=== PATIENT | male | born 1985 | race Caucasian/White ===

== ENCOUNTER 2016-05-16 09:38 | Emergency (ER) | payer OTHER ==
[~2016-05-16] VITALS: Ht 177.8 cm; Wt 121.2 kg
[2016-05-16 09:58] VITALS: Ht 177.8 cm; Wt 121.2 kg
--- NOTE | 2016-05-16 11:31 | ERD ---
ER Documentation Chief Complaint Date/Time DATE: 05/16/16 TIME: 11:26 Chief Complaint RT HAND INJURY ON FRIDAY, PREVIOUS INJURY NOT TREATED HPI This is a 30-year-old male with history of hypertension presenting to the emergency room complaining of right hand pain since Friday. Patient states that he has had no traumatic injury to it. Patient states that he has also been drinking alcohol every single day for the past few months, patient states that he has been a chronic alcoholic for the past 12 years and relapsed recently when he came out of the [facility]. Patient denies any abdominal pain, nausea, vomiting. Patient states that he is going to [facility] and he is trying to overcome alcoholism ROS All systems reviewed and are negative except as per history of present illness. Medications Home Meds Reported Medications [None] No Conflict Check 04/30/12 Allergies Allergies: Coded Allergies: morphine (Verified Allergy, 07/28/12) PMhx/Soc History of Surgery: No Anesthesia Reaction: No Hx Neurological Disorder: No Hx Respiratory Disorders: No Hx Cardiac Disorders: No Hx Psychiatric Problems: Yes (bipolar; depression) Hx Miscellaneous Medical Probl: Yes (DM) Hx Alcohol Use: Yes (HEAVY DRINKER) Hx Substance Use: No (UNKNOWN) Hx Tobacco Use: No (UNKNOWN) Physical Exam Vitals Vital Signs Date Time Temp Pulse Resp B/P Pulse Ox O2 Delivery O2 Flow Rate FiO2 05/16/16 09:58 98.6 115 16 137/83 96 Physical Exam GENERAL: well-developed/well-nourished, in no apparent distress, non-toxic appearing HENT: NC/AT, bilateral tympanic membrane is normal with good cone of light, nares patent, oropharynx clear without exudates EYES: Conjunctiva normal, PERRLA, EOMI, no nystagmus noted NECK: Supple, no lymphadenopathy PULM: CTA bilaterally, no rales, rhonchi, or wheezing heard CV: Normal S1S2, RRR, good capillary refill GI: Soft, non-distended, normal bowel sounds, non-tender BACK: No midline tenderness, no masses, No CVAT EXT: Mild tenderness to palpation over the right dorsal hand, patient had full range of motion of the right hand, patient had full range of motion of all digits, no neuro deficits NEURO: Alert and orientated to person, place, and time. CN II-IIX intact. Gait and coordination were normal. Hand mid level clinician strength were equal and within normal limits SKIN: Intact, normal turgor PSYCH: Normal mood and mentation, patient denied SI Procedures/MDM This is a 30-year-old male with a history of hypertension and chronic alcoholism presenting to the emergency department complaining of right hand atraumatic injury since Friday. Patient also admits to having alcohol today. On examination patient had a normal neurological exam, he is speaking clearly , patient was ambulating well with normal gait. Patient had no evidence of ataxia. Patient is clinically sober. I have given patient a lengthy discussion on discontinuing alcohol and getting help, patient states that he is trying to get help at suitable living from [place]. I have discussed outpatient resources however patient states that he already is speaking to a psychiatrist and is getting help. He states that he does want to quit and he is working on it. On examination patient had full range of motion of his right hand and digits. An x-ray of the right hand was done to rule out any fracture dislocation, radiologist stated I have given patient a list of primary care doctors, I discussed patient to follow-up with the primary care doctor for further evaluation management. SUSANA CHAMBERLAIN PA-C May 16, 2016 11:31
--- NOTE | 2016-05-16 12:25 | RADRPT ---
PROCEDURE: XR Hand. CLINICAL INDICATION: Right hand pain due to trauma. TECHNIQUE: Three views. Frontal, lateral, and oblique images of the right hand were obtained. COMPARISON: No prior studies are available for comparison. FINDINGS: There is deformity of the third, fourth and fifth metacarpals distally due to old healed fractures. There is no acute fracture and there is no dislocation. There is mild soft tissue swelling overlying the fifth metacarpal. Articular surfaces are intact. There is no lytic or blastic lesion. There is no radiopaque foreign body. IMPRESSION: 1. Old healed fractures of the third, fourth, and fifth metacarpals distally. 2. Soft tissue swelling overlying the fifth metacarpal. 3. No acute abnormality. RPTAT: QQ .Neil Rice MD, Date Time Electronically viewed and signed by .Neil Rice MD, on 05/16/2016 12:25 .R/
[2016-05-16] MEDS ORDERED: ACET325T33 PO (12:48)
== END 2016-05-16 13:14 | disposition home or self-care (01) ==
LOC: FTE 09:38
DX: S69.91XA Unspecified injury of right wrist, hand and finger(s), initial encounter (principal); I10 Essential (primary) hypertension; E11.9 Type 2 diabetes mellitus without complications; X58.XXXA Exposure to other specified factors, initial encounter; Y92.9 Unspecified place or not applicable
CPT/HCPCS: 73130; Z7502

== ENCOUNTER 2016-07-29 13:26 | Emergency (ER) | payer OTHER ==
[~2016-07-29] VITALS: Wt 113.6 kg
[~2016-07-29 13:26] MED LIST: ACET325T33 PO
--- NOTE | 2016-07-29 13:32 | ERA ---
ER Documentation Chief Complaint Date/Time DATE: 07/29/16 TIME: 13:32 Chief Complaint Altered level of consciousness HPI The patient is 31-year-old male, presenting to the ER because he was found altered level of consciousness from a motel. He is able to answer his name, however is very somnolent but arousable. The history is obtained from the rn clinical and medical record Past medical history: Bipolar disorder, depression, diabetes mellitus Past surgical history, social history, review of system: Unable to obtain due to his condition ROS All systems reviewed and are negative except as per history of present illness. Medications Home Meds Discontinued Reported Medications [None] No Conflict Check 04/30/12 Discontinued Scripts Acetaminophen* (Tylenol*) 325 Mg Tablet, 2 TAB PO Q4 Y for PAIN AND OR ELEVATED TEMP, #30 TAB Prov:SUSANA CHAMBERLAIN PA-C 05/16/16 Allergies Allergies: Coded Allergies: morphine (Verified Allergy, Unknown, 07/29/16) PMhx/Soc History of Surgery: No Anesthesia Reaction: No Hx Neurological Disorder: No Hx Respiratory Disorders: No Hx Cardiac Disorders: No Hx Psychiatric Problems: Yes (bipolar; depression) Hx Miscellaneous Medical Probl: Yes (DM) Hx Alcohol Use: Yes (HEAVY DRINKER) Hx Substance Use: No (UNKNOWN) Hx Tobacco Use: No (UNKNOWN) Physical Exam Vitals Vital Signs Date Time Temp Pulse Resp B/P Pulse Ox O2 Delivery O2 Flow Rate FiO2 07/29/16 15:23 98.2 64 18 115/69 97 Nasal Cannula 2.0 07/29/16 13:46 Nasal Cannula 2 07/29/16 13:31 98.0 81 16 126/82 94 Physical Exam Const: No acute distress. Head: Atraumatic. Eyes: Normal Conjunctiva. Pupils are dilated ENT: Normal External Ears, Nose and Mouth. Neck: Full range of motion. No meningismus. Resp: Clear to auscultation bilaterally. Cardio: Regular rate and rhythm, no murmurs. Abd: Soft, non distended, normal bowel sounds, non tender. Skin: No petechiae or rashes. Back: No midline or flank tenderness. Ext: No cyanosis, or edema. Neur: Limited due to his condition, he is moving all extremities Psych: Normal Mood and Affect. Result Diagram: 07/29/16 1350 07/29/16 1350 Results 24 hrs Laboratory Tests Test 07/29/16 13:50 07/29/16 13:53 07/29/16 14:34 White Blood Count 7.610^3/ul Red Blood Count 5.4010^6/ul Hemoglobin 15.2g/dl Hematocrit 45.9% Mean Corpuscular Volume 85.0fl Mean Corpuscular Hemoglobin 28.1pg Mean Corpuscular Hemoglobin Concent 33.1g/dl Red Cell Distribution Width 14.9% Platelet Count 63885^3/UL Mean Platelet Volume 10.3fl Neutrophils % 49.2% Lymphocytes % 40.8% Monocytes % 8.2% Eosinophils % 0.4% Basophils % 0.5% Nucleated Red Blood Cells % 0.0/100WBC Neutrophils # 3.810^3/ul Lymphocytes # 3.110^3/ul Monocytes # 0.610^3/ul Eosinophils # 0.010^3/ul Basophils # 0.010^3/ul Nucleated Red Blood Cells # 0.010^3/ul Prothrombin Time 12.4Sec Prothrombin Time Ratio 1.0 INR International Normalized Ratio 0.92 Activated Partial Thromboplast Time 27.7Sec Urine Color LT. YELLOW Urine Clarity CLEAR Urine pH 6.0 Urine Specific [place] <=1.005 Urine Ketones NEGATIVE Urine Nitrite NEGATIVE Urine Bilirubin NEGATIVE Urine Urobilinogen 0.2 E.U./dL Urine Leukocyte Esterase NEGATIVE Urine Microscopic RBC NONE SEEN/HPF Urine Microscopic WBC NONE SEEN/HPF Urine Renal Epithelial Cells FEW Urine Hemoglobin TRACE Urine Glucose NEGATIVE% Urine Total Protein NEGATIVE Sodium Level 150mmol/L Potassium Level 4.0mmol/L Chloride Level 110mmol/L Carbon Dioxide Level 23mmol/L Anion Gap 21 Blood Urea Nitrogen 11mg/dl Creatinine 0.95mg/dl Glucose Level 103mg/dl Calcium Level 9.0mg/dl Total Bilirubin 0.1mg/dl Direct Bilirubin 0.00mg/dl Indirect Bilirubin 0.1mg/dl Aspartate Amino Transf (AST/SGOT) 55IU/L Alanine Aminotransferase (ALT/SGPT) 46IU/L Alkaline Phosphatase 135IU/L Troponin I < 0.012ng/ml Total Protein 8.4g/dl Albumin 4.5g/dl Globulin 3.90g/dl Albumin/Globulin Ratio 1.15 Salicylates Level < 1.0mg/dl Urine Opiates Screen NEGATIVE Acetaminophen Level < 10.0ug/ml Urine Barbiturates NEGATIVE Urine Amphetamines Screen NEGATIVE Urine Benzodiazepines Screen NEGATIVE Urine Cocaine Screen NEGATIVE Urine Cannabinoids NEGATIVE Ethyl Alcohol Level 465.0mg/dl Bedside Glucose 87mg/dL 122mg/dL Current Medications Medications (Trade) Dose Ordered Sig/Gilbert Route PRN Reason Start Time Stop Time Status Last Admin Dose Admin Dextrose (D50w Syringe) 25 ml NOW STAT IV 07/29/16 13:56 07/29/16 13:57 DC 07/29/16 14:11 Procedures/MDM [place] [id number] Radiology Main Line: [phone] DIAGNOSTIC IMAGING REPORT Patient: YUSRA ROMO : 1985 Age: 31 Sex: M MR #: [id number] DOS: 07/29/16 1339 Ordering MD: JUANY QUEEN MD Location: E/R Room/Bed: PROCEDURE: Chest Radiograph. CLINICAL INDICATION: Altered mental status TECHNIQUE: Single frontal chest radiograph. COMPARISON: 07/28/2012 FINDINGS: The the patient is rotated. Study is limited due to underpenetration. Heart size is poorly evaluated. There is no definitive confluent or lobar infiltrate. No pleural effusion is identified. Lung volumes are decreased in there is basilar atelectasis. IMPRESSION: 1. Low lung volumes with basilar atelectasis. RPTAT: KK .Won Morris MD, MD Date Time Electronically viewed and signed by .Won Morris MD, MD on 2016 13:59 .B/ CC: JUANY QUEEN MD [place] [id number] Radiology Main Line: [phone] DIAGNOSTIC IMAGING REPORT Patient: YUSRA ROMO : 1985 Age: 31 Sex: M MR #: [id number] DOS: 07/29/16 1339 Ordering MD: JUANY QUEEN MD Location: E/R Room/Bed: PROCEDURE: CT Brain without. CLINICAL INDICATION: Altered mental status. TECHNIQUE: A CT of the brain was performed on multidetector high-resolution CT scanner utilizing axial sections from the skull base through the vertex without contrast. The scan was reviewed in soft tissue brain and high frequency resolution bone algorithm windows. Images were reviewed on a high- resolution PACS workstation. One or more the following does reduction techniques were utilized: Automated exposure control, adjustment of the mA/ or kV according to patient's size, or use of iterative reconstruction technique. The exam CTDI = 43.50 mGy and the DLP = 720.23 mGy-cm. COMPARISON: None available. FINDINGS: The ventricles and sulci are age-appropriate. There is no intracranial hemorrhage, mass effect or midline shift. No abnormal intra-axial or extra- axial fluid collections are seen. The carrillo/white matter differentiation is preserved. No acute skull abnormality is noted. The visualized paranasal sinuses demonstrate mild scattered mucosal thickening mainly in ethmoid air cells. The mastoid air cells are essentially clear. IMPRESSION: 1. No acute intracranial hemorrhage, transcortical infarction or mass effect. RPTAT: HH .Annemarie Philip MD, Date Time Electronically viewed and signed by .Annemarie Philip MD, MD on 07/29/2016 16: 02 .N/ CC: JUANY QUEEN MD MEDICAL MAKING DECISION: The patient is a 31-year-old male, presenting to the ER because of acute encephalopathy due to acute alcohol intoxication. He is awake and he is resting in the ER. He will be discharged when he chriss, able to ambulate, able to tolerate p.o. The differential diagnoses considered include but are not limited to medication non-compliance, alcohol intoxication or withdrawal, drug intoxication or withdrawal, endocrine disorder, trauma, CVA, tumor, metabolic encephalopathy, septic encephalopathy. Departure Diagnosis: Primary Impression: Alcohol intoxication Condition: Good Comments I discussed the findings with the patient. I advised the patient to follow-up with the primary physician in about 1-2 days, sooner if needed and return if any concern. He will be discharged when he is chriss The patient's blood pressure was elevated (>120/80) but appears stable without evidence of hypertension emergency or urgency. The patient was counseled about the risks of hypertension and urged to pursue outpatient monitoring and therapy within a week with their primary care physician. JUANY QUEEN MD July 29, 2016 13:32
[2016-07-29 13:56] LABS: ADD SCAN DIFF NO
[2016-07-29] MEDS ORDERED: DEXTROSE 50% 50 ML SYRINGE IV STA (13:56)
--- NOTE | 2016-07-29 13:59 | RADRPT ---
PROCEDURE: Chest Radiograph. CLINICAL INDICATION: Altered mental status TECHNIQUE: Single frontal chest radiograph. COMPARISON: 07/28/2012 FINDINGS: The the patient is rotated. Study is limited due to underpenetration. Heart size is poorly evaluat ed. There is no definitive confluent or lobar infiltrate. No pleural effusion is identified. Lung volumes are decreased in there is basilar atelectasis. IMPRESSION: 1. Low lung volumes with basilar atelectasis. RPTAT: KK .Won Morris MD, MD Date Time Electronically viewed and signed by .Won Morris MD, MD on 07/29/2016 13:59 .B/
[2016-07-29 14:07] LABS: BASOPHILS % 0.5 % (0.0-2.0); EOSINOPHILS % 0.4 % (0.0-7.0); HEMATOCRIT 45.9 % (42.0-52.0); HEMOGLOBIN 15.2 g/dl (14.0-18.0); LYMPHOCYTES # 3.1 10^3/ul (0.8-2.9); LYMPHOCYTES % 40.8 % (15.0-51.0); MEAN CORPUSCULAR HEMOGLOBIN 28.1 pg (29.0-33.0); MEAN CORPUSCULAR HGB CONC 33.1 g/dl (32.0-37.0); MEAN PLATELET VOLUME 10.3 fl (7.4-10.4); MONOCYTE # 0.6 10^3/ul (0.3-0.9); MONOCYTES % 8.2 % (0.0-11.0); NEUTROPHIL # 3.8 10^3/ul (1.6-7.5); NEUTROPHILS % 49.2 % (39.0-77.0); PLATELET COUNT 330 10^3/UL (140-415); RED CELL DISTRIBUTION WIDTH 14.9 % (11.5-14.5); WHITE BLOOD COUNT 7.6 10^3/ul (4.8-10.8)
[2016-07-29 14:09] LABS: ADD UMIC YES; URINE BILIRUBIN (Dip) NEGATIVE (NEGATIVE); URINE BLOOD (Dip) TRACE (NEGATIVE); URINE COLOR LT. YELLOW (YELLOW); URINE GLUCOSE (Dip) NEGATIVE (NEGATIVE); URINE KETONES (Dip) NEGATIVE (NEGATIVE); URINE LEUKOCYTE ESTERASE (Dip) NEGATIVE (NEGATIVE); URINE NITRITE (Dip) NEGATIVE (NEGATIVE); URINE TOTAL PROTEIN (Dip) NEGATIVE (NEGATIVE); URINE UROBILINOGEN (Dip) 0.2 E.U./dL (0.1-1.0)
[2016-07-29 14:13] LABS: ALBUMIN 4.5 g/dl (3.3-4.9)
[2016-07-29 14:14] LABS: CHLORIDE 110 mmol/L (97-110); INR 0.92; PARTIAL THROMBOPLASTIN TIME 27.7 Sec (25.0-35.0); PROTIME 12.4 Sec (12.2-14.2); SODIUM 150 mmol/L (135-144)
[2016-07-29 14:16] LABS: ALBUMIN/GLOBULIN RATIO 1.15; ALKALINE PHOSPHATASE 135 IU/L (42-121); ANION GAP 21 (8-16); ASPARTATE AMINO TRANSFERASE 55 IU/L (15-46); BILIRUBIN,INDIRECT 0.1 mg/dl (0-1.1); BILIRUBIN,TOTAL 0.1 mg/dl (0.2-1.3); CARBON DIOXIDE 23 mmol/L (21-31); CREATININE 0.95 mg/dl (0.61-1.24); TOTAL PROTEIN 8.4 g/dl (6.1-8.1)
[2016-07-29 14:17] LABS: ACETAMINOPHEN < 10.0 ug/ml (10.0-30.0); ALANINE AMINOTRANSFERASE 46 IU/L (13-69); BLOOD UREA NITROGEN 11 mg/dl (7-20); GLUCOSE 103 mg/dl (70-220); SALICYLATE < 1.0 mg/dl (5.0-30.0)
[2016-07-29 14:21] LABS: RENAL EPITHELIAL CELLS,URINE FEW; URINE RBCS NONE SEEN /HPF (0)
[2016-07-29 14:28] LABS: TROPONIN-I < 0.012 ng/ml (0.00-0.12)
[2016-07-29 14:39] LABS: BARBITURATES NEGATIVE (NEGATIVE); BENZODIAZEPINES NEGATIVE (NEGATIVE); CANNABINOIDS NEGATIVE (NEGATIVE); COCAINE NEGATIVE (NEGATIVE); OPIATES NEGATIVE (NEGATIVE)
--- NOTE | 2016-07-29 16:03 | RADRPT ---
PROCEDURE: CT Brain without. CLINICAL INDICATION: Altered mental status. TECHNIQUE: A CT of the brain was performed on multidetector high-resolution CT scanner utilizing a xial sections from the skull base through the vertex without contrast. The scan was reviewed in sof t tissue brain and high frequency resolution bone algorithm windows. Images were reviewed on a high -resolution PACS workstation. One or more the following does reduction techniques were utilized: Aut omated exposure control, adjustment of the mA/ or kV according to patient's size, or use of iterativ e reconstruction technique. The exam CTDI = 43.50 mGy and the DLP = 720.23 mGy-cm. COMPARISON: None available. FINDINGS: The ventricles and sulci are age-appropriate. There is no intracranial hemorrhage, mass effect or mi dline shift. No abnormal intra-axial or extra-axial fluid collections are seen. The carrillo/white micki er differentiation is preserved. No acute skull abnormality is noted. The visualized paranasal sinus es demonstrate mild scattered mucosal thickening mainly in ethmoid air cells. The mastoid air cells are essentially clear. IMPRESSION: 1. No acute intracranial hemorrhage, transcortical infarction or mass effect. RPTAT: HH .Annemarie Philip MD, Date Time Electronically viewed and signed by .Annemarie Philip MD, MD on 07/29/2016 16:02 .N/
[2016-07-29 18:59] VITALS: BP 130/83; PULSE 98; RESP 20; TEMP 98.1
== END 2016-07-29 19:02 | disposition home or self-care (01) ==
LOC: E/R 13:26
DX: F10.120 Alcohol abuse with intoxication, uncomplicated (principal); E11.9 Type 2 diabetes mellitus without complications
CPT/HCPCS: 70450; 71010; 80053; 80306; 80307; 81001; 82962; 84484; 85025; 85610; 85730; 93005; 96374; Z7502; Z7610; 81003

== ENCOUNTER 2016-09-09 10:11 | Inpatient (IN) | payer OTHER ==
[~2016-09-09] VITALS: Ht 180.3 cm; Wt 114.6 kg
[2016-09-09] MEDS ORDERED: THIAMINE 100 MG TAB PO STA (10:26)
[2016-09-09] MEDS ORDERED: SOD CHLORIDE 0.9% 1,000 ML IV STA (10:26)
[2016-09-09] MEDS ORDERED: LORAZEPAM 2 MG INJ IV ONE ×3 (10:30→20:30)
[2016-09-09] MEDS ORDERED: FOLIC ACID 1 MG TAB PO ONE (10:30)
[2016-09-09 11:09] LABS: ADD SCAN DIFF NO
[2016-09-09 11:12] LABS: BASOPHIL # 0.1 10^3/ul (0.0-0.1); BASOPHILS % 1.1 % (0.0-2.0); EOSINOPHILS # 0.1 10^3/ul (0.0-0.5); EOSINOPHILS % 1.3 % (0.0-7.0); HEMATOCRIT 41.4 % (42.0-52.0); HEMOGLOBIN 13.8 g/dl (14.0-18.0); LYMPHOCYTES # 1.5 10^3/ul (0.8-2.9); LYMPHOCYTES % 26.4 % (15.0-51.0); MEAN CORPUSCULAR HEMOGLOBIN 29.1 pg (29.0-33.0); MEAN CORPUSCULAR HGB CONC 33.3 g/dl (32.0-37.0); MEAN CORPUSCULAR VOLUME 87.2 fl (82.0-101.0); MEAN PLATELET VOLUME 10.1 fl (7.4-10.4); MONOCYTES % 17.4 % (0.0-11.0); NEUTROPHILS % 53.6 % (39.0-77.0); PLATELET COUNT 249 10^3/UL (140-415); RED BLOOD COUNT 4.75 10^6/ul (4.70-6.10); RED CELL DISTRIBUTION WIDTH 17.5 % (11.5-14.5); WHITE BLOOD COUNT 5.6 10^3/ul (4.8-10.8)
[2016-09-09 11:28] LABS: BENZODIAZEPINES Positive (NEGATIVE)
[2016-09-09 11:36] LABS: BARBITURATES Negative (NEGATIVE); CANNABINOIDS Negative (NEGATIVE); COCAINE Negative (NEGATIVE); OPIATES Negative (NEGATIVE)
[2016-09-09 11:43] LABS: ALBUMIN 4.8 g/dl (3.3-4.9); ALBUMIN/GLOBULIN RATIO 1.45; BILIRUBIN,INDIRECT 0.2 mg/dl (0-1.1); BILIRUBIN,TOTAL 0.2 mg/dl (0.2-1.3); CALCIUM 9.4 mg/dl (8.4-10.2); CREATININE 0.78 mg/dl (0.61-1.24); POTASSIUM 3.7 mmol/L (3.5-5.1); TOTAL PROTEIN 8.1 g/dl (6.1-8.1)
--- NOTE | 2016-09-09 13:09 | RADRPT ---
PROCEDURE: Right hand series CLINICAL INDICATION: Right hand pain after trauma TECHNIQUE: Three views of the right hand were obtained. COMPARISON: No prior studies are available for comparison. FINDINGS: There is normal mineralization and alignment of the bones of the right hand. There are healed third and fifth metacarpal fractures and a possible healed fourth distal metacarpal fracture. There is n o evidence of acute fracture or dislocation. Joint spaces are well maintained. There is no evidenc e of osteophyte formation or erosions. There is moderate dorsal soft tissue swelling. IMPRESSION: 1. Healed 3rd and fifth metacarpal fractures. 2. No evidence of acute fracture or dislocation. RPTAT: KK .Won Morris MD, MD Date Time Electronically viewed and signed by .Won Morris MD, on 09/09/2016 13:08 .B/
--- NOTE | 2016-09-09 13:51 | ERA ---
ER Documentation Chief Complaint Date/Time DATE: 09/09/16 TIME: 13:48 Chief Complaint feeling like he is withdrawing from alcohol,denies si/hi,c/o right hand wade HPI 31-year-old male who presents the emergency room stating that he feels like he might be withdrawing from alcohol and reporting suicidal thoughts. He describes a history of bipolar disorder and deyvi. He is describing increasing suicidal thoughts, feeling anxious and overwhelmed. He is states that he would like to kill himself by drinking. The patient states that he has been drinking. He states that his last drink was 11 PM last night. He states he feels a mild tremor but denies any falls or injury. No headache or vision changes. He denies any abdominal pain or back pain. The patient additionally describes mild right hand pain that is dull aching and throbbing after punching a wall 2 days ago. He is right-hand dominant. ROS All systems reviewed and are negative except as per history of present illness. Medications Home Meds No Active Prescriptions or Reported Meds Allergies Allergies: Coded Allergies: morphine (Verified Allergy, Unknown, 07/29/16) PMhx/Soc History of Surgery: No Anesthesia Reaction: No Hx Neurological Disorder: No Hx Respiratory Disorders: No Hx Cardiac Disorders: No Hx Psychiatric Problems: Yes (bipolar; depression) Hx Miscellaneous Medical Probl: Yes (DM) Hx Alcohol Use: Yes (HEAVY DRINKER) Hx Substance Use: No Hx Tobacco Use: No FmHx Family History: No diabetes Physical Exam Vitals Vital Signs Date Time Temp Pulse Resp B/P Pulse Ox O2 Delivery O2 Flow Rate FiO2 09/09/16 10:25 98.0 84 20 144/105 95 Physical Exam General: Well developed, well nourished, no acute distress Head: Normocephalic, atraumatic. Eyes: Pupils equally reactive, EOM intact ENT: Moist mucous membranes Neck: Supple, no lymphadenopathy Respiratory: Lungs clear bilaterally, no distress Cardiovascular: RRR, no murmurs, rubs, or gallops Abdominal: Soft, non-tender, non-distended, no peritoneal signs : Deferred MSK: No edema, no unilateral swelling, 5/5 strength, mild soft tissue tenderness to the hand without bony deformities, right hand, 2+ radial and ulnar pulses. No snuffbox tenderness. Full active and passive range of motion. Neurologic: Alert and oriented, moving all extremities, normal speech, no focal weakness, no cerebellar signs Skin: No rash Psych: Depressed mood, suicidal thoughts Result Diagram: 09/09/16 1049 09/09/16 1049 Results 24 hrs Laboratory Tests Test 09/09/16 10:49 White Blood Count 5.610^3/ul Red Blood Count 4.7510^6/ul Hemoglobin 13.8g/dl Hematocrit 41.4% Mean Corpuscular Volume 87.2fl Mean Corpuscular Hemoglobin 29.1pg Mean Corpuscular Hemoglobin Concent 33.3g/dl Red Cell Distribution Width 17.5% Platelet Count 57297^3/UL Mean Platelet Volume 10.1fl Neutrophils % 53.6% Lymphocytes % 26.4% Monocytes % 17.4% Eosinophils % 1.3% Basophils % 1.1% Nucleated Red Blood Cells % 0.0/100WBC Neutrophils # 3.010^3/ul Lymphocytes # 1.510^3/ul Monocytes # 1.010^3/ul Eosinophils # 0.110^3/ul Basophils # 0.110^3/ul Nucleated Red Blood Cells # 0.010^3/ul Sodium Level 148mmol/L Potassium Level 3.7mmol/L Chloride Level 107mmol/L Carbon Dioxide Level 25mmol/L Anion Gap 20 Blood Urea Nitrogen 6mg/dl Creatinine 0.78mg/dl Glucose Level 115mg/dl Calcium Level 9.4mg/dl Total Bilirubin 0.2mg/dl Direct Bilirubin 0.00mg/dl Indirect Bilirubin 0.2mg/dl Aspartate Amino Transf (AST/SGOT) 114IU/L Alanine Aminotransferase (ALT/SGPT) 81IU/L Alkaline Phosphatase 116IU/L Total Protein 8.1g/dl Albumin 4.8g/dl Globulin 3.30g/dl Albumin/Globulin Ratio 1.45 Urine Opiates Screen Negative Urine Barbiturates Negative Urine Amphetamines Screen Negative Urine Benzodiazepines Screen Positive Urine Cocaine Screen Negative Urine Cannabinoids Negative Ethyl Alcohol Level 326.0mg/dl Current Medications Medications (Trade) Dose Ordered Sig/Gilbert Route PRN Reason Start Time Stop Time Status Last Admin Dose Admin Sodium Chloride (NS) 1,000 ml @ 1,000 mls/hr Q1H STAT IV 09/09/16 10:26 09/09/16 11:25 DC 09/09/16 10:55 Thiamine HCl (Vitamin B1) 100 mg ONCE STAT PO 09/09/16 10:26 09/09/16 10:32 DC 09/09/16 11:18 Lorazepam (Ativan) 1 mg ONCE ONCE IV 09/09/16 10:30 09/09/16 10:32 DC 09/09/16 10:45 Folic Acid (Folic Acid) 1 mg ONCE ONCE PO 09/09/16 10:30 09/09/16 10:32 DC 09/09/16 11:18 Lorazepam (Ativan) 1 mg ONCE ONCE IV 09/09/16 12:30 09/09/16 12:31 DC 09/09/16 12:47 Procedures/MDM EKG/DIAGNOSTIC IMAGING: X-ray right hand: I reviewed and interpreted multiple views of the x-ray Bones: No evidence of acute fracture dislocation or subluxation Soft tissue: No evidence of foreign body LAB INTERPRETATION: Elevated alcohol level MEDICAL DECISION MAKING: The patient's presentation is consistent with underlying psychiatric illness and likely exacerbation of this illness and/or psychosis. I have a much lower clinical concern for delirium or acute organic pathology such as toxicologic, metabolic, ischemic, intracranial hemorrhage, infectious process. However, we must rule this out prior to relying a diagnosis of underlying psychiatric illness. The patient's workup will include medical screening examination, laboratory analysis, and diagnostic imaging such as EKG, chest x-ray or CT brain as indicated. If the patient's medical examination and laboratory analysis do not reveal acute organic pathology the patient will be medically cleared for psychiatric evaluation. ER COURSE: The patient was describing mild tremor, consider early withdrawal symptoms though his alcohol level is still elevated at 326. 2 doses of Ativan, oral thiamine, folic acid provided. IV fluid provided. No evidence of overt withdrawal syndromes warranting hospitalization. X-ray imaging of the right hand is negative. Consistent with contusion. No indication for mobilization per The patient's laboratory analysis, diagnostic imaging do not suggest an acute organic pathology. At this time I believe the patient's presentation is very consistent with underlying psychiatric illness. The patient is medically cleared for psychiatric evaluation. I kept the patient and/or family informed of laboratory and diagnostic imaging results throughout the emergency room course. CONSULTATION: Psychiatric consultation: Telemetry medicine psychiatry has been consulted on this case to evaluate the patient for possible acute psychiatric illness that would require inpatient hospitalization. DISPOSITION PLAN: Pending telemetry medicine psychiatry evaluation Departure Diagnosis: Primary Impression: Alcohol abuse Additional Impressions: Acute alcohol intoxication Qualified Code: F10.120 - Acute alcohol intoxication, uncomplicated Alcohol withdrawal Qualified Code: F10.230 - Alcohol withdrawal, uncomplicated Suicidal ideation Condition: Stable JOEY BARBOSA MD Sep 09, 2016 13:51
--- NOTE | 2016-09-09 14:20 | PSY ---
Date/Time of Note Date/Time of Note DATE: 09/09/16 TIME: 14:14 Psychiatric Subjective Eval Consent Pt consented to telemedicine: Yes Subjective Evaluation Patient location: emergency Chief Complaint: feeling like he is withdrawing from alcohol,denies si/hi,c/o right hand wade Reason for consult: spoke with Dr Son History of present illness 31 yo homeless male with hx bipolar disorder and alcohol use disorder self presenting to ED c/o alcohol withdrawlals and SI with a plan to rink himself to . PT stopped his psych meds (ABilify 10 mg , trazodone 100 mg) a few days ago because he relapsed on alcohol and now feels hopeless nad helpless, has mood swings , anxiety and agitation. He is not able to contract for safety ; he denies AH or VH, but says he does have a hx DT and alcohol withdrawal seizures. Past psychiatric history prior inpt Hospitalization: Suicidal Attempt(s) Medical history Problems Medical Problems: (1) Acute alcohol intoxication Status: Acute (2) Alcohol abuse Status: Acute (3) Alcohol intoxication Status: Acute (4) Alcohol withdrawal Status: Acute (5) Hand pain Status: Acute (6) Hand sprain Status: Acute (7) Suicidal ideation Status: Acute Allergies: Coded Allergies: morphine (Verified Allergy, Unknown, 07/29/16) Substance Abuse Substance abuse history: Yes Prior substance abuse treatmen: Yes Social History Marital status: single Level of education: 9th grade DPA/Conservatorship: No Occupation/Long-Term: homeless Psychiatric Objective Eval Review of Systems: Review of Systems: Not Applicable Physical Examination: Physical Examination: Not Applicable Sleep: Insomnia Energy: Increased Mental Status Examination: Appearance: Disheveled Eye Contact: Good Psychomotor Activity: Normal Behavior: Cooperative Speech: Clear AFFECT: Anxious Mood: Depressed Though Process: Linear Thought Content: Normal Suicidal: Yes Homicidal: No On 72 hour hold: No Orientation: x4 Cognition: Alert Insight: Impared Judgement: Impared Laboratory Results Laboratory Tests Test 09/09/16 10:49 White Blood Count 5.610^3/ul Red Blood Count 4.7510^6/ul Hemoglobin 13.8g/dl Hematocrit 41.4% Mean Corpuscular Volume 87.2fl Mean Corpuscular Hemoglobin 29.1pg Mean Corpuscular Hemoglobin Concent 33.3g/dl Red Cell Distribution Width 17.5% Platelet Count 27302^3/UL Mean Platelet Volume 10.1fl Neutrophils % 53.6% Lymphocytes % 26.4% Monocytes % 17.4% Eosinophils % 1.3% Basophils % 1.1% Nucleated Red Blood Cells % 0.0/100WBC Neutrophils # 3.010^3/ul Lymphocytes # 1.510^3/ul Monocytes # 1.010^3/ul Eosinophils # 0.110^3/ul Basophils # 0.110^3/ul Nucleated Red Blood Cells # 0.010^3/ul Sodium Level 148mmol/L Potassium Level 3.7mmol/L Chloride Level 107mmol/L Carbon Dioxide Level 25mmol/L Anion Gap 20 Blood Urea Nitrogen 6mg/dl Creatinine 0.78mg/dl Glucose Level 115mg/dl Calcium Level 9.4mg/dl Total Bilirubin 0.2mg/dl Direct Bilirubin 0.00mg/dl Indirect Bilirubin 0.2mg/dl Aspartate Amino Transf (AST/SGOT) 114IU/L Alanine Aminotransferase (ALT/SGPT) 81IU/L Alkaline Phosphatase 116IU/L Total Protein 8.1g/dl Albumin 4.8g/dl Globulin 3.30g/dl Albumin/Globulin Ratio 1.45 Urine Opiates Screen Negative Urine Barbiturates Negative Urine Amphetamines Screen Negative Urine Benzodiazepines Screen Positive Urine Cocaine Screen Negative Urine Cannabinoids Negative Ethyl Alcohol Level 326.0mg/dl Assessment and Plan Assessment/Diagnosis [place] I: BIPOALR D/O NOS ALCOHOL USE DISORDER ALCOHOL WITHDRAWLS DELIRIUM IMPENDING [place] II: DEFERED [place] III: PER RECORD [place] IV: SEVERE [place] V: GAF 25 Recommendation/Plan Medication Management PLEASE START CIWA; ABILIFY 10 MG POQD Psychotherapy DEFER TO INPT Pt. Caregiver/Family Education NA Follow-up/Disposition PLEASE TRANSFER TO INPT PSYCH FOR DTS. LAURI SALAZAR MD Sep 09, 2016 14:20
[2016-09-09 16:00] VITALS: TEMP 98.3
[2016-09-09] MEDS ORDERED: ONDANSETRON (ODT) 4 MG TAB ODT STA (17:40)
[2016-09-09] MEDS ORDERED: LORAZEPAM 2 MG INJ IM ONE (18:00)
[2016-09-09] MEDS ORDERED: ONDANSETRON 4 MG INJ IV STA (20:28)
[2016-09-10] MEDS ORDERED: ONDANSETRON 4 MG INJ IV STA (07:30)
[2016-09-10] MEDS ORDERED: LORAZEPAM 2 MG INJ IV ONE ×2 (07:30→10:30)
[2016-09-10] MEDS ORDERED: ACETAMINOPHEN 325 MG TAB PO PRN (11:30)
[2016-09-10] MEDS ORDERED: ONDANSETRON 4 MG INJ IV PRN ×2 (11:30→18:00)
[2016-09-10 15:30] VITALS: BP 145/87; PULSE 73; RESP 20
[2016-09-10 16:00] VITALS: Ht 180.3 cm; Wt 114.6 kg
[2016-09-10 16:03] VITALS: BP 145/87; RESP 20
[2016-09-10 16:15] VITALS: PULSE 65
[2016-09-10] MEDS: DEXTROSE 5%-0.9% NACL 1,000 ML IV SCH (18:16)
[2016-09-10] MEDS: LORAZEPAM 2 MG INJ IV PRN ×2 (18:16→21:41)
--- NOTE | 2016-09-10 19:20 | HP ---
Date/Time of Note Date/Time of Note DATE: 09/10/16 TIME: 19:16 Assessment/Plan VTE Prophylaxis VTE Prophylaxis Intervention: other Assessment/Plan Chief Complaint/Hosp Course A/P ETOH ABUSE DT HYPERNATREMIA HX BIPOLAR DIS PLAN PER ORDER Problems: HPI/ROS Admit Date/Time Admit Date/Time Sep 10, 2016 at 11:26 Hx of Present Illness HX BIPOLAR DIS USING ETON W SHAKING AND DT POSITIVE ROS Eyes: no complaints Respiratory: no complaints Cardiovascular: no complaints Gastrointestinal: No diarrhea Genitourinary: no complaints Musculoskeletal: no complaints Skin: no complaints Endocrine: no complaints PMH/Family/Social Past Surgical History Past Surgical Hx: no surgical history Family History Significant Family History: no pertinent family hx Social History Smoking Status: Current every day smoker Exam/Review of Systems Vital Signs Vitals Vital Signs Date Time Temp Pulse Resp B/P Pulse Ox O2 Delivery O2 Flow Rate FiO2 09/10/16 16:15 65 09/10/16 16:03 97.8 20 145/87 96 09/10/16 14:51 Room Air 09/10/16 04:00 2.0 Exam Constitutional: alert, oriented, other (ANXIOUS) Psych: anxiety Head: atraumatic, normocephalic Eyes: EOMI, nl conjunctiva ENMT: nl external ears & nose, nl lips & teeth, nl nasal mucosa & septum Neck: supple Respiratory: clear to auscultation, normal air movement Cardiovascular: regular rate and rhythm Gastrointestinal: nl liver, spleen, soft Musculoskeletal: nl extremities to inspection Extremities: normal pulses Neurological: PROSTHODONTIST/OWNER II-XII intact, nl mental status Labs Result Diagram: 09/09/16 1049 09/09/16 1049 Medications Medications Current Medications Aripiprazole 10 mg 10 mg QHS PO ; Start 09/10/16 at 21:00 Multivitamins/ Thiamine HCl/ Folic Acid/Sodium Chloride (Mvi Adult/ Vitamin B1/ Folic Acid/NS) 1,011.2 ml @ 125 mls/ hr DAILY@09 IVPB ; Start 09/11/16 at 09:00 Pantoprazole (Protonix Iv) 40 mg DAILY@06 IV ; Start 09/11/16 at 06:00 Lorazepam (Ativan) 1 mg Q4 PRN IV Withdrawal Last administered on 09/10/16t 18: 16; Admin Dose 1 MG; Start 09/10/16 at 17:00 Chlordiazepoxide (Librium) 25 mg TID PO ; Start 09/10/16 at 21:00 Acetaminophen 650 mg 650 mg Q6H PRN PO PAIN AND OR ELEVATED TEMP; Start at 17:00 Dextrose/Sodium Chloride (D5-NS) 1,000 ml @ 75 mls/hr [id number] IV Last administered on 09/10/16t 18:16; Admin Dose 75 MLS/HR; Start 09/10/16 at 17:00 Ondansetron HCl (Zofran Inj) 4 mg Q4H PRN IV NAUSEA AND/OR VOMITING; Start at 18:00 WINSTON PETERSON MD Sep 10, 2016 19:20
[2016-09-10 19:21] VITALS: BP 115/62; RESP 17
[2016-09-10 20:10] VITALS: PULSE 65
[2016-09-10] MEDS: CHLORDIAZEPOXIDE 25 MG CAP PO SCH (21:41)
[2016-09-10] MEDS: ARIPIPRAZOLE 10 MG TAB PO SCH (22:04)
[2016-09-11] VITALS (9 sets, daily range): BP systolic 112–131; BP diastolic 57–98; PULSE 53–74; RESP 16–21
[2016-09-11] MEDS: LORAZEPAM 2 MG INJ IV PRN ×2 (01:03→05:06)
[2016-09-11] MEDS: DEXTROSE 5%-0.9% NACL 1,000 ML IV SCH ×2 (05:06→19:40)
[2016-09-11] MEDS: ACETAMINOPHEN 325 MG TAB PO PRN ×4 (05:06→23:37)
[2016-09-11] MEDS ORDERED: PANTOPRAZOLE 40 MG INJ IV SCH (06:00)
[2016-09-11] MEDS: CHLORDIAZEPOXIDE 25 MG CAP PO SCH ×3 (09:01→17:23)
[2016-09-11] MEDS: MULTIVITAMINS 10 ML, THIAMINE 100 MG, FOLIC ACID 1 MG in SOD CHLORIDE 0.9% 1,000 ML IVPB SCH (09:04)
[2016-09-11 11:16] LABS: ADD SCAN DIFF NO
[2016-09-11 11:28] LABS: BASOPHIL # 0.1 10^3/ul (0.0-0.1); BASOPHILS % 0.6 % (0.0-2.0); EOSINOPHILS # 0.2 10^3/ul (0.0-0.5); EOSINOPHILS % 2.6 % (0.0-7.0); HEMATOCRIT 44.7 % (42.0-52.0); HEMOGLOBIN 14.4 g/dl (14.0-18.0); LYMPHOCYTES # 0.8 10^3/ul (0.8-2.9); LYMPHOCYTES % 8.9 % (15.0-51.0); MEAN CORPUSCULAR HEMOGLOBIN 28.5 pg (29.0-33.0); MEAN CORPUSCULAR HGB CONC 32.2 g/dl (32.0-37.0); MEAN CORPUSCULAR VOLUME 88.5 fl (82.0-101.0); MEAN PLATELET VOLUME 10.4 fl (7.4-10.4); MONOCYTE # 0.9 10^3/ul (0.3-0.9); MONOCYTES % 10.1 % (0.0-11.0); NEUTROPHIL # 7.2 10^3/ul (1.6-7.5); NEUTROPHILS % 77.5 % (39.0-77.0); PLATELET COUNT 264 10^3/UL (140-415); RED BLOOD COUNT 5.05 10^6/ul (4.70-6.10); RED CELL DISTRIBUTION WIDTH 16.6 % (11.5-14.5); WHITE BLOOD COUNT 9.2 10^3/ul (4.8-10.8)
[2016-09-11 11:55] LABS: ALBUMIN 4.7 g/dl (3.3-4.9); ALBUMIN/GLOBULIN RATIO 1.62; BILIRUBIN,INDIRECT 0.8 mg/dl (0-1.1); BILIRUBIN,TOTAL 0.8 mg/dl (0.2-1.3); CALCIUM 9.6 mg/dl (8.4-10.2); CREATININE 0.77 mg/dl (0.61-1.24); POTASSIUM 4.5 mmol/L (3.5-5.1); TOTAL PROTEIN 7.6 g/dl (6.1-8.1)
[2016-09-11] MEDS: LORAZEPAM 1 MG TAB PO PRN ×3 (13:38→22:11)
--- NOTE | 2016-09-11 18:37 | PSY ---
Date/Time of Note Date/Time of Note DATE: 09/11/16 TIME: 18:19 Psychiatric Subjective Eval Consent Pt consented to telemedicine: Yes Subjective Evaluation Patient location: emergency Chief Complaint: feeling like he is withdrawing from alcohol,denies si/hi,c/o right hand wade Reason for consult: spoke with Dr Son History of present illness This is a 31 year old single male who has a history of alcohol dependence and bipolar disorder, who presented with complaints of suicidal ideation as well as symptoms of alcohol withdrawal. He states that he was consuming a bottle of vodka 80 proof daily. He was seen by Dr. Mortensen on September 09, 2016. She recommended CIWA protocol, and suggested when medically cleared transfer to a psychiatric bed. She suggested that he was a danger to himself, but he was not formally placed on a 5150, as he was receiving medical care on a voluntary basis. He states that he has had a long standing history of binge drinking. He has been placed on a 5150 on multiple occasions as when intoxicated be becomes suicidal. He has received a variety of treatment for his problems with alcohol dependence including Naltrexone, with little clinical success. He does endorse having a history of mood swings associated with sleep disturbance, racing negative intrusive thoughts, and suicidal ideation. He currently denies any suicidal ideation intent or plan. He states that he continues to feel withdrawal symptoms, relieved with Ativan. Past psychiatric history Past Psychiatric History: He has had multiple psychiatric admissions. The most recent was several weeks ago. He has been prescribed Lexapro, and most recently Abilify. Hospitalization: Suicidal Attempt(s) Family History Mother has a history of depression. He is not aware of other family members how have problems with substance use. Medical history Problems Medical Problems: (1) Acute alcohol intoxication Status: Acute (2) Alcohol abuse Status: Acute (3) Alcohol intoxication Status: Acute (4) Alcohol withdrawal Status: Acute (5) Hand pain Status: Acute (6) Hand sprain Status: Acute (7) Suicidal ideation Status: Acute Allergies: Coded Allergies: morphine (Verified Allergy, Unknown, 09/09/16) Social History Marital status: single Level of education: 9th grade DPA/Conservatorship: No Occupation/Nursing Home: homeless Psychiatric Objective Eval Review of Systems: Review of Systems: Not Applicable Constitutional: Normal Eyes: Normal ENT: Normal Neck: Normal Respiratory: Normal Chest/Breast: Normal Cardiovascular: Normal GI: Normal Genitourinary: Normal Skin: Abnormal Musculoskeletal: Normal Neurological: Normal Other: skin irritation from bed bugs. Physical Examination: Sleep: Insomnia Appetite: Adequate Energy: Adequate Interest: Adequate Mental Status Examination: Appearance: Groomed Eye Contact: Good Psychomotor Activity: Normal Behavior: Friendly, Cooperative Speech: Clear AFFECT: Anxious Mood: Appropriate/Full, Depressed, Anxious Though Process: Linear Thought Content: Normal Suicidal: No Homicidal: No On 72 hour hold: No Orientation: x4 Cognition: Alert Insight: Intact Judgement: Intact Attention Span: Intact Laboratory Results Laboratory Tests Test 09/11/16 10:45 White Blood Count 9.210^3/ul Red Blood Count 5.0510^6/ul Hemoglobin 14.4g/dl Hematocrit 44.7% Mean Corpuscular Volume 88.5fl Mean Corpuscular Hemoglobin 28.5pg Mean Corpuscular Hemoglobin Concent 32.2g/dl Red Cell Distribution Width 16.6% Platelet Count 87230^3/UL Mean Platelet Volume 10.4fl Neutrophils % 77.5% Lymphocytes % 8.9% Monocytes % 10.1% Eosinophils % 2.6% Basophils % 0.6% Nucleated Red Blood Cells % 0.0/100WBC Neutrophils # 7.210^3/ul Lymphocytes # 0.810^3/ul Monocytes # 0.910^3/ul Eosinophils # 0.210^3/ul Basophils # 0.110^3/ul Nucleated Red Blood Cells # 0.010^3/ul Sodium Level 139mmol/L Potassium Level 4.5mmol/L Chloride Level 102mmol/L Carbon Dioxide Level 26mmol/L Anion Gap 16 Blood Urea Nitrogen 8mg/dl Creatinine 0.77mg/dl Glucose Level 91mg/dl Calcium Level 9.6mg/dl Total Bilirubin 0.8mg/dl Direct Bilirubin 0.00mg/dl Indirect Bilirubin 0.8mg/dl Aspartate Amino Transf (AST/SGOT) 58IU/L Alanine Aminotransferase (ALT/SGPT) 59IU/L Alkaline Phosphatase 120IU/L Total Protein 7.6g/dl Albumin 4.7g/dl Globulin 2.90g/dl Albumin/Globulin Ratio 1.62 Assessment and Plan Assessment/Diagnosis [place] I: F31.63 Bipolar disorder mixed severe without psychotic features. F10.20 Alcohol dependence [place] II: deferred [place] III: alcohol withdrawal [place] IV: problems with housing, employment and finances. [place] V: 50 Recommendation/Plan Medication Management Suggest continue Lexapro 10mg Abilify 10mg consider a Lamotrigine trial. Follow-up/Disposition The patient once medically cleared and not at risk for delirium tremens, can be safely discharged to himself. I do not believe that he was formally placed on a 5150. He currently does not meet such criteria at this time. 5150 Recommendation: Release FELY Jo MD Sep 11, 2016 18:29
[2016-09-11] MEDS: ARIPIPRAZOLE 10 MG TAB PO SCH (20:28)
--- NOTE | 2016-09-11 23:09 | PN ---
Date/Time of Note Date/Time of Note DATE: 09/11/16 TIME: 23:08 Assessment/Plan VTE Prophylaxis VTE Prophylaxis Intervention: other Lines/Catheters IV Catheter Type (from Nrs): Peripheral IV Assessment/Plan Chief Complaint/Hosp Course A/P ETOH ABUSE DT HYPERNATREMIA better HX BIPOLAR DIS PLAN PER ORDER psychic f/u Problems: Subjective 24 Hr Interval Summary Subjective hx not possible: other (no suicidal ideation) Respiratory: no complaints Cardiovascular: no complaints Exam/Review of Systems Vital Signs Vitals Vital Signs Date Time Temp Pulse Resp B/P Pulse Ox O2 Delivery O2 Flow Rate FiO2 09/11/16 20:03 98.0 66 21 131/84 98 09/10/16 15:30 Room Air 09/10/16 04:00 2.0 Intake and Output 09/10/16 09/10/16 09/11/16 15:00 23:00 07:00 Intake Total 795 ml 700 ml Output Total 400 ml 650 ml Balance 395 ml 50 ml Exam Neck: supple Respiratory: clear to auscultation Cardiovascular: regular rate and rhythm Gastrointestinal: soft Musculoskeletal: nl extremities to inspection Results Result Diagram: 09/11/16 1045 09/11/16 1045 Results 24 hrs Laboratory Tests Test 09/11/16 10:45 White Blood Count 9.2 # Red Blood Count 5.05 Hemoglobin 14.4 Hematocrit 44.7 Mean Corpuscular Volume 88.5 Mean Corpuscular Hemoglobin 28.5 L Mean Corpuscular Hemoglobin Concent 32.2 Red Cell Distribution Width 16.6 H Platelet Count 264 Mean Platelet Volume 10.4 Neutrophils % 77.5 H Lymphocytes % 8.9 L Monocytes % 10.1 Eosinophils % 2.6 Basophils % 0.6 Nucleated Red Blood Cells % 0.0 Neutrophils # 7.2 Lymphocytes # 0.8 Monocytes # 0.9 Eosinophils # 0.2 Basophils # 0.1 Nucleated Red Blood Cells # 0.0 Sodium Level 139 Potassium Level 4.5 Chloride Level 102 Carbon Dioxide Level 26 Anion Gap 16 Blood Urea Nitrogen 8 Creatinine 0.77 Glucose Level 91 Calcium Level 9.6 Total Bilirubin 0.8 Direct Bilirubin 0.00 Indirect Bilirubin 0.8 Aspartate Amino Transf (AST/SGOT) 58 H Alanine Aminotransferase (ALT/SGPT) 59 Alkaline Phosphatase 120 Total Protein 7.6 Albumin 4.7 Globulin 2.90 Albumin/Globulin Ratio 1.62 Medications Medications Current Medications Aripiprazole 10 mg 10 mg QHS PO Last administered on 09/11/16 20:28; Admin Dose 10 MG; Start 09/10/16 at 21:00 Multivitamins/ Thiamine HCl/ Folic Acid/Sodium Chloride (Mvi Adult/ Vitamin B1/ Folic Acid/NS) 1,011.2 ml @ 125 mls/ hr DAILY@09 IVPB Last administered on 09:04; Admin Dose 125 MLS/HR; Start 09/11/16 at 09:00 Chlordiazepoxide (Librium) 25 mg TID PO Last administered on 09/11/16 17:23; Admin Dose 25 MG; Start 09/10/16 at 21:00 Acetaminophen 650 mg 650 mg Q6H PRN PO PAIN AND OR ELEVATED TEMP Last administered on 09/11/16 17:22; Admin Dose 650 MG; Start 09/10/16 at 17:00 Dextrose/Sodium Chloride (D5-NS) 1,000 ml @ 75 mls/hr [id number] IV Last administered on 09/11/16 05:06; Admin Dose 75 MLS/HR; Start 09/10/16 at 17:00 Ondansetron HCl (Zofran Inj) 4 mg Q4H PRN IV NAUSEA AND/OR VOMITING; Start at 18:00 Pantoprazole (Protonix Tab) 40 mg DAILY@06 PO ; Start 09/12/16 at 06:00 Lorazepam (Ativan) 1 mg Q4H PRN PO Withdrawal Last administered on 09/11/16 22 :11; Admin Dose 1 MG; Start 09/11/16 at 12:30 WINSTON PETERSON MD Sep 11, 2016 23:09
[2016-09-12] VITALS (11 sets, daily range): BP systolic 130–143; BP diastolic 79–88; PULSE 50–64; RESP 19–21
[2016-09-12] MEDS: LORAZEPAM 1 MG TAB PO PRN ×5 (02:20→22:59)
[2016-09-12] MEDS: PANTOPRAZOLE (EC) 40 MG TAB PO SCH (05:22)
[2016-09-12] MEDS: CHLORDIAZEPOXIDE 25 MG CAP PO SCH ×3 (08:28→20:38)
[2016-09-12] MEDS: MULTIVITAMINS 10 ML, THIAMINE 100 MG, FOLIC ACID 1 MG in SOD CHLORIDE 0.9% 1,000 ML IVPB SCH (08:45)
[2016-09-12] MEDS: DEXTROSE 5%-0.9% NACL 1,000 ML IV SCH ×2 (08:50→20:39)
[2016-09-12] MEDS: ACETAMINOPHEN 325 MG TAB PO PRN ×3 (10:44→22:59)
[2016-09-12] MEDS: ESCITALOPRAM 10 MG TAB PO SCH (12:05)
[2016-09-12] MEDS: ARIPIPRAZOLE 10 MG TAB PO SCH (20:38)
--- NOTE | 2016-09-12 21:14 | PN ---
Date/Time of Note Date/Time of Note DATE: 09/12/16 TIME: 21:13 Assessment/Plan VTE Prophylaxis VTE Prophylaxis Intervention: other Lines/Catheters IV Catheter Type (from Nrs): Peripheral IV Assessment/Plan Chief Complaint/Hosp Course A/P ETOH ABUSE DT HYPERNATREMIA better HX BIPOLAR DIS PLAN CONTINUE SAME psychic f/u SEEN Problems: Subjective 24 Hr Interval Summary Subjective hx not possible: other (LESS ANXIOUS) Exam/Review of Systems Vital Signs Vitals Vital Signs Date Time Temp Pulse Resp B/P Pulse Ox O2 Delivery O2 Flow Rate FiO2 09/12/16 20:13 98.1 68 19 143/79 98 09/10/16 15:30 Room Air 09/10/16 04:00 2.0 Intake and Output 09/11/16 09/11/16 09/12/16 15:00 23:00 07:00 Intake Total 1750 ml 800 ml Output Total 125 ml 700 ml 800 ml Balance -125 ml 1050 ml 0 ml Exam Neck: supple Respiratory: clear to auscultation Cardiovascular: regular rate and rhythm Gastrointestinal: soft Extremities: No edema Neurological: CLIPPER COUNTERS II-XII intact, nl mental status Results Result Diagram: 09/11/16 1045 09/11/16 1045 Medications Medications Current Medications Aripiprazole 10 mg 10 mg QHS PO Last administered on 09/12/16 20:38; Admin Dose 10 MG; Start 09/10/16 at 21:00 Multivitamins/ Thiamine HCl/ Folic Acid/Sodium Chloride (Mvi Adult/ Vitamin B1/ Folic Acid/NS) 1,011.2 ml @ 125 mls/ hr DAILY@09 IVPB Last administered on 08:45; Admin Dose 125 MLS/HR; Start 09/11/16 at 09:00 Chlordiazepoxide (Librium) 25 mg TID PO Last administered on 09/12/16 20:38; Admin Dose 25 MG; Start 09/10/16 at 21:00 Acetaminophen 650 mg 650 mg Q6H PRN PO PAIN AND OR ELEVATED TEMP Last administered on 09/12/16 16:21; Admin Dose 650 MG; Start 09/10/16 at 17:00 Dextrose/Sodium Chloride (D5-NS) 1,000 ml @ 75 mls/hr [id number] IV Last administered on 6/29/17at 20:39; Admin Dose 75 MLS/HR; Start 09/10/16 at 17:00 Ondansetron HCl (Zofran Inj) 4 mg Q4H PRN IV NAUSEA AND/OR VOMITING; Start at 18:00 Pantoprazole (Protonix Tab) 40 mg DAILY@06 PO Last administered on 09/12/16 05 :22; Admin Dose 40 MG; Start 09/12/16 at 06:00 Lorazepam (Ativan) 1 mg Q4H PRN PO Withdrawal Last administered on 09/12/16 18 :05; Admin Dose 1 MG; Start 09/11/16 at 12:30 Escitalopram Oxalate (Lexapro) 10 mg DAILY PO Last administered on 09/12/16 12 :05; Admin Dose 10 MG; Start 09/12/16 at 11:30 WINSTON PETERSON MD Sep 12, 2016 21:14
[2016-09-13] VITALS (12 sets, daily range): BP systolic 124–137; BP diastolic 61–83; PULSE 54–81; RESP 16–22
[2016-09-13] MEDS: LORAZEPAM 1 MG TAB PO PRN ×5 (04:48→22:45)
[2016-09-13] MEDS: PANTOPRAZOLE (EC) 40 MG TAB PO SCH (07:25)
[2016-09-13] MEDS: ESCITALOPRAM 10 MG TAB PO SCH (08:49)
[2016-09-13] MEDS: MULTIVITAMINS 10 ML, THIAMINE 100 MG, FOLIC ACID 1 MG in SOD CHLORIDE 0.9% 1,000 ML IVPB SCH (08:49)
[2016-09-13] MEDS: CHLORDIAZEPOXIDE 25 MG CAP PO SCH ×3 (08:49→20:27)
[2016-09-13] MEDS: ACETAMINOPHEN 325 MG TAB PO PRN (08:54)
--- NOTE | 2016-09-13 13:21 | PN ---
Date/Time of Note Date/Time of Note DATE: 09/13/16 TIME: 13:19 Assessment/Plan VTE Prophylaxis VTE Prophylaxis Intervention: ambulation Lines/Catheters IV Catheter Type (from Nrsg): Peripheral IV Assessment/Plan Chief Complaint/Hosp Course 1. ETOH ABUSE 2. DT 3. HYPERNATREMIA better 4. HX BIPOLAR DIS Problems: Assessment/Plan 1.continue current regime Subjective 24 Hr Interval Summary Constitutional: improved, no complaints Exam/Review of Systems Vital Signs Vitals Vital Signs Date Time Temp Pulse Resp B/P Pulse Ox O2 Delivery O2 Flow Rate FiO2 09/13/16 12:26 81 09/13/16 11:45 98.1 18 136/80 96 09/10/16 15:30 Room Air 09/10/16 04:00 2.0 Intake and Output 09/12/16 09/12/16 09/13/16 15:00 23:00 07:00 Intake Total 2200 ml 800 ml Balance 2200 ml 800 ml Exam Head: normocephalic ENMT: nl external ears & nose Musculoskeletal: muscle weakness, other (shaky hands) Results Result Diagram: 09/11/16 1045 09/11/16 1045 Medications Medications Current Medications Aripiprazole 10 mg 10 mg QHS PO Last administered on 09/12/16 20:38; Admin Dose 10 MG; Start 09/10/16 at 21:00 Multivitamins/ Thiamine HCl/ Folic Acid/Sodium Chloride (Mvi Adult/ Vitamin B1/ Folic Acid/NS) 1,011.2 ml @ 125 mls/ hr DAILY@09 IVPB Last administered on 08:49; Admin Dose 125 MLS/HR; Start 09/11/16 at 09:00 Chlordiazepoxide (Librium) 25 mg TID PO Last administered on 09/13/16 13:17; Admin Dose 25 MG; Start 09/10/16 at 21:00 Acetaminophen 650 mg 650 mg Q6H PRN PO PAIN AND OR ELEVATED TEMP Last administered on 09/13/16 08:54; Admin Dose 650 MG; Start 09/10/16 at 17:00 Dextrose/Sodium Chloride (D5-NS) 1,000 ml @ 75 mls/hr [id number] IV Last administered on 09/12/16 20:39; Admin Dose 75 MLS/HR; Start 09/10/16 at 17:00 Ondansetron HCl (Zofran Inj) 4 mg Q4H PRN IV NAUSEA AND/OR VOMITING; Start at 18:00 Pantoprazole (Protonix Tab) 40 mg DAILY@06 PO Last administered on 09/13/16 07 :25; Admin Dose 40 MG; Start 09/12/16 at 06:00 Lorazepam (Ativan) 1 mg Q4H PRN PO Withdrawal Last administered on 09/13/16 08 :54; Admin Dose 1 MG; Start 09/11/16 at 12:30 Escitalopram Oxalate (Lexapro) 10 mg DAILY PO Last administered on 09/13/16 08 :49; Admin Dose 10 MG; Start 09/12/16 at 11:30 JERE FORMAN Sep 13, 2016 13:20
[2016-09-13] MEDS: DEXTROSE 5%-0.9% NACL 1,000 ML IV SCH (18:02)
[2016-09-13] MEDS: ARIPIPRAZOLE 10 MG TAB PO SCH (20:26)
[2016-09-14] VITALS (8 sets, daily range): BP systolic 106–143; BP diastolic 67–79; PULSE 59–87; RESP 16–18
[2016-09-14] MEDS: DEXTROSE 5%-0.9% NACL 1,000 ML IV SCH ×2 (01:00→14:20)
[2016-09-14] MEDS: PANTOPRAZOLE (EC) 40 MG TAB PO SCH (05:43)
[2016-09-14] MEDS: LORAZEPAM 1 MG TAB PO PRN (07:43)
[2016-09-14] MEDS: MULTIVITAMINS 10 ML, THIAMINE 100 MG, FOLIC ACID 1 MG in SOD CHLORIDE 0.9% 1,000 ML IVPB SCH ×2 (08:21→09:00)
[2016-09-14] MEDS: CHLORDIAZEPOXIDE 25 MG CAP PO SCH ×2 (08:21→13:19)
[2016-09-14] MEDS: ESCITALOPRAM 10 MG TAB PO SCH (08:21)
--- NOTE | 2016-09-14 12:33 | PDOCDIS ---
Discharge Instructions CONDITION Patient Condition: Good HOME CARE INSTRUCTIONS: Diet Instructions: Regular ACTIVITY: Activity Restrictions: Slowly Increase Activity JERE FORMAN Sep 14, 2016 12:33
[2016-09-14] MEDS ORDERED: ARIP10TA13 PO (12:35)
[2016-09-14] MEDS ORDERED: ESCI10TA48 PO (12:41)
--- NOTE | 2016-09-14 12:43 | PN ---
Date/Time of Note Date/Time of Note DATE: 09/14/16 TIME: 12:42 Assessment/Plan VTE Prophylaxis VTE Prophylaxis Intervention: ambulation Lines/Catheters IV [facility] Saline Lock Assessment/Plan Chief Complaint/Hosp Course 1. ETOH ABUSE 2. DT 3. HYPERNATREMIA better 4. HX BIPOLAR DIS 5. Depression 6. Hypertension, uncontrolled Problems: Assessment/Plan 1. Discontinue home with meds 2. See psychiatrist in i week 3. Metoprolol to control hypertension Subjective 24 Hr Interval Summary Constitutional: improved, no complaints Exam/Review of Systems Vital Signs Vitals Vital Signs Date Time Temp Pulse Resp B/P Pulse Ox O2 Delivery O2 Flow Rate FiO2 09/14/16 12:04 74 09/14/16 11:45 99.0 18 143/79 98 09/10/16 15:30 Room Air Intake and Output 09/13/16 09/13/16 09/14/16 15:00 23:00 07:00 Intake Total 2000 ml 1500 ml Output Total 2000 ml 1800 ml Balance 0 ml -300 ml Exam Constitutional: alert, oriented Results Result Diagram: 09/11/16 1045 09/11/16 1045 Medications Medications Current Medications Aripiprazole 10 mg 10 mg QHS PO Last administered on 09/13/16 20:26; Admin Dose 10 MG; Start 09/10/16 at 21:00 Multivitamins/ Thiamine HCl/ Folic Acid/Sodium Chloride (Mvi Adult/ Vitamin B1/ Folic Acid/NS) 1,011.2 ml @ 125 mls/ hr DAILY@09 IVPB Last administered on 09/14 08:21; Admin Dose 125 MLS/HR; Start 09/11/16 at 09:00 Chlordiazepoxide (Librium) 25 mg TID PO Last administered on 09/14/16 08:21; Admin Dose 25 MG; Start 09/10/16 at 21:00 Acetaminophen 650 mg 650 mg Q6H PRN PO PAIN AND OR ELEVATED TEMP Last administered on 09/13/16 08:54; Admin Dose 650 MG; Start 09/10/16 at 17:00 Dextrose/Sodium Chloride (D5-NS) 1,000 ml @ 75 mls/hr [id number] IV Last administered on 09/13/16 18:02; Admin Dose 75 MLS/HR; Start 09/10/16 at 17:00 Ondansetron HCl (Zofran Inj) 4 mg Q4H PRN IV NAUSEA AND/OR VOMITING; Start at 18:00 Pantoprazole (Protonix Tab) 40 mg DAILY@06 PO Last administered on 09/14/16 05: 43; Admin Dose 40 MG; Start 09/12/16 at 06:00 Lorazepam (Ativan) 1 mg Q4H PRN PO Withdrawal Last administered on 09/14/16 07: 43; Admin Dose 1 MG; Start 09/11/16 at 12:30 Escitalopram Oxalate (Lexapro) 10 mg DAILY PO Last administered on 09/14/16 08: 21; Admin Dose 10 MG; Start 09/12/16 at 11:30 Metoprolol Tartrate (Lopressor) 25 mg DAILY PO ; Start 09/14/16 at 13:00; Status JERE FLORES Sep 14, 2016 12:43
[2016-09-14] MEDS ORDERED: METOPROLOL 25 MG TAB PO SCH (13:00)
--- NOTE | 2016-09-14 17:45 | DS ---
Date/Time of Note Date/Time of Note DATE: 09/14/16 TIME: 17:43 Discharge Summary Admission/Discharge Info Admit Date/Time Sep 10, 2016 at 11:26 Discharge Date/Time Sep 14, 2016 at 15:35 Discharge Diagnosis 1. ETOH abuse 2. Bipolar disorder Patient Condition: Good Consults psych Procedures none Hx of Present Illness HX BIPOLAR DIS USING ETON W SHAKING AND DT POSITIVE Hospital Course 1. ETOH ABUSE 2. DT 3. HYPERNATREMIA better 4. HX BIPOLAR DIS 5. Depression 6. Hypertension, uncontrolled Home Meds Active Scripts Escitalopram Oxalate* (Escitalopram Oxalate*) 10 Mg Tablet, 10 MG PO DAILY for 30 Days, TAB Prov:JERE FORMAN 09/14/16 Aripiprazole* (Abilify*) 10 Mg Tablet, 10 MG PO QHS for 28 Days, TAB Prov:JERE FORMAN 09/14/16 Follow-up Plan 1. 1 week psych MD 2. Medications were prescribed Primary Care Provider MD DICKSON Sanchez ANNA Sep 14, 2016 17:44
== END 2016-09-14 15:35 | disposition home or self-care (01) | DRG 897 ==
LOC: E/R 10:11 → MS4 09-10 11:26
PROVIDERS: ADMIT Internal Medicine Nephrology; ATTEND Internal Medicine Nephrology
DX: F10.239 Alcohol dependence with withdrawal, unspecified (principal); E87.0 Hyperosmolality and hypernatremia; R45.851 Suicidal ideations; F31.9 Bipolar disorder, unspecified; F10.229 Alcohol dependence with intoxication, unspecified; F32.9 Major depressive disorder, single episode, unspecified; I10 Essential (primary) hypertension; S63.91XA Sprain of unspecified part of right wrist and hand, initial encounter; Y33.XXXA Other specified events, undetermined intent, initial encounter
CPT/HCPCS: 36415; 80053; 80306; 80307; 85025; 96372; 96374; 96376; C9113; J0400; J2060; J2405; J3411; J7030; J7042

== ENCOUNTER 2016-12-01 11:43 | Emergency (ER) | payer OTHER ==
[~2016-12-01] VITALS: Ht 160 cm; Wt 113.0 kg
[~2016-12-01 11:43] MED LIST changes: -ACET325T33 PO; +ARIP10TA13 PO; +ESCI10TA48 PO
[2016-12-01 11:50] VITALS: Ht 160 cm; Wt 113.0 kg
--- NOTE | 2016-12-01 12:13 | ERD ---
ER Documentation Chief Complaint Date/Time DATE: 12/01/16 TIME: 12:12 Chief Complaint HPI This 31-year-old male presents to the emergency room for evaluation of alcohol ingestion. The patient was brought in by EMS. Patient denies any homicidal suicidal ideation. ROS All systems reviewed and are negative except as per history of present illness. Medications Home Meds Active Scripts Escitalopram Oxalate* (Escitalopram Oxalate*) 10 Mg Tablet, 10 MG PO DAILY for 30 Days, TAB Prov:MEZENTSEVA,JERE 09/14/16 Aripiprazole* (Abilify*) 10 Mg Tablet, 10 MG PO QHS for 28 Days, TAB Prov:MEZENTSEVA,JERE 09/14/16 Allergies Allergies: Coded Allergies: morphine (Verified Allergy, Unknown, 09/09/16) PMhx/Soc History of Surgery: Yes (Appendectomy ('00), ENT deviated septum sx) Anesthesia Reaction: No Hx Neurological Disorder: No Hx Respiratory Disorders: No Hx Cardiac Disorders: No Hx Psychiatric Problems: Yes (Manic depressive ) Hx Miscellaneous Medical Probl: No Hx Alcohol Use: Yes Hx Substance Use: No Hx Tobacco Use: Yes (Smoke/chew tobacco) Physical Exam Physical Exam Const:Disheveled appearance Head: Atraumatic Eyes: Normal Conjunctiva ENT: Normal External Ears, Nose and Mouth. Neck: Full range of motion..~ No meningismus. Resp: Clear to auscultation bilaterally Cardio: Regular rate and rhythm, no murmurs Abd: Soft, non tender, non distended. Normal bowel sounds Skin: No petechiae or rashes Back: No midline or flank tenderness Ext: No cyanosis, or edema Neur: Awake and alert Psych: Normal Mood and Affect Procedures/MDM This 31-year-old male presents to the emergency room for evaluation of alcohol ingestion. This patient will be discharged he is clinically sober. No homicidal or suicidal ideation at this time. Smoking Cessation Therapy: Pt. was lectured for greater than 3 minutes on the health risks of continued smoking and the benefits of cessation. Departure Diagnosis: Primary Impression: Alcohol ingestion Additional Impression: Alcohol abuse Condition: Stable ELROY WRIGHT DO Dec 01, 2016 12:13
[2016-12-01] MEDS ORDERED: IBUPROFEN 600 MG TAB ONE (13:42)
[2016-12-01] MEDS ORDERED: ANTA250 PO (16:47)
[2016-12-01] MEDS ORDERED: ONDA4TAB8 PO (16:47)
[2016-12-01] MEDS ORDERED: FAMO-96 PO (16:47)
[2016-12-01 17:00] VITALS: BP 125/80; PULSE 64; RESP 16; TEMP 98
== END 2016-12-01 17:00 | disposition home or self-care (01) ==
LOC: E/R 11:43
DX: T51.94XA Toxic effect of unspecified alcohol, undetermined, initial encounter (principal); F10.120 Alcohol abuse with intoxication, uncomplicated; Z87.891 Personal history of nicotine dependence
CPT/HCPCS: 82962; Z7502; Z7610; 99284

== ENCOUNTER 2016-12-05 11:00 | Emergency (ER) | payer OTHER ==
[~2016-12-05] VITALS: Wt 100.0 kg
[~2016-12-05 11:00] MED LIST changes: +ANTA250 PO; +FAMO-96 PO; +ONDA4TAB8 PO
[2016-12-05] MEDS ORDERED: LORAZEPAM 1 MG TAB PO ONE (11:30)
--- NOTE | 2016-12-05 12:34 | ERD ---
ER Documentation Chief Complaint Date/Time DATE: 12/05/16 TIME: 12:26 Chief Complaint ALCOHOL INTOXICATION AND NEEDS A DETOX UNIT. NO SUICIDAL OR HOMICIDAL IDEA HPI Patient is a 31-year-old male with alcohol abuse who presents with alcohol withdrawal. He was brought in by ambulance. He says "I am going through alcohol withdrawal". He said that his last drink was 10 hours ago. He said that he drinks 1 L of vodka per day. Upon review of old medical records this is the patient's 12th visit to the ER since 2011 for similar complaints. He does not currently have a primary doctor. ROS All systems reviewed and are negative except as per history of present illness. Medications Home Meds Active Scripts Disulfiram (Antabuse) 250 Mg Tablet, 250 MG PO DAILY, #14 TAB Prov:ELROY WRIGHT DO 12/01/16 Famotidine* (Pepcid*) 20 Mg Tablet, 20 MG PO BID for 10 Days, TAB Prov:ELROY WRIGHT DO 12/01/16 Ondansetron Hcl* (Zofran*) 4 Mg Tablet, 4 MG PO Q8H Y for NAUSEA AND/OR VOMITING , #15 TAB Prov:ELROY WRIGHT DO 12/01/16 Escitalopram Oxalate* (Escitalopram Oxalate*) 10 Mg Tablet, 10 MG PO DAILY for 30 Days, TAB Prov:JERE FORMAN 09/14/16 Aripiprazole* (Abilify*) 10 Mg Tablet, 10 MG PO QHS for 28 Days, TAB Prov:JERE FORMAN 09/14/16 Allergies Allergies: Coded Allergies: morphine (Verified Allergy, Unknown, 09/09/16) PMhx/Soc History of Surgery: Yes (Appendectomy ('00), ENT deviated septum sx) Anesthesia Reaction: No Hx Neurological Disorder: No Hx Respiratory Disorders: No Hx Cardiac Disorders: No Hx Psychiatric Problems: Yes (Manic depressive ) Hx Miscellaneous Medical Probl: No Hx Alcohol Use: Yes Hx Substance Use: No Hx Tobacco Use: Yes Smoking Status: Current some day smoker FmHx Family History: No diabetes Physical Exam Vitals Vital Signs Date Time Temp Pulse Resp B/P Pulse Ox O2 Delivery O2 Flow Rate FiO2 12/05/16 11:23 98.8 77 20 137/76 98 Physical Exam Const: No acute distress Head: Atraumatic Eyes: Normal Conjunctiva ENT: Normal External Ears, Nose and Mouth. Neck: Full range of motion..~ No meningismus. Resp: Clear to auscultation bilaterally Cardio: Regular rate and rhythm, no murmurs Abd: Soft, non tender, non distended. Normal bowel sounds Skin: No petechiae or rashes Back: No midline or flank tenderness Ext: No cyanosis, or edema Neur: Awake with mild tremulousness, answering questions appropriately Psych: Normal Mood and Affect Results 24 hrs Current Medications Medications (Trade) Dose Ordered Sig/Gilbert Route PRN Reason Start Time Stop Time Status Last Admin Dose Admin Lorazepam (Ativan) 1 mg ONCE ONCE PO 12/05/16 11:30 12/05/16 11:31 DC 12/05/16 11:44 Procedures/MDM Smoking Cessation Therapy: Pt. was lectured for greater than 3 minutes on the health risks of continued smoking and the benefits of cessation. Patient is a 31-year-old male Departure Diagnosis: Primary Impression: Alcohol withdrawal Condition: Fair Patient Instructions: Alcohol Withdrawal Referrals: [facility] YOU HAVE RECEIVED A MEDICAL SCREENING EXAM AND THE RESULTS INDICATE THAT YOU DO NOT HAVE A CONDITION THAT REQUIRES URGENT TREATMENT IN THE EMERGENCY DEPARTMENT. FURTHER EVALUATION AND TREATMENT OF YOUR CONDITION CAN WAIT UNTIL YOU ARE SEEN IN YOUR DOCTORS OFFICE WITHIN THE NEXT 1-2 DAYS. IT IS YOUR RESPONSIBILITY TO MAKE AN APPOINTMENT FOR FOLOW-UP CARE. IF YOU HAVE A PRIMARY DOCTOR --you should call your primary doctor and schedule an appointment IF YOU DO NOT HAVE A PRIMARY DOCTOR YOU CAN CALL OUR PHYSICIAN REFERRAL HOTLINE AT IF YOU CAN NOT AFFORD TO SEE A PHYSICIAN YOU CAN CHOSE FROM THE FOLLOWING [facility] [address] [facility] [address] [facility] [facility] [address] [facility] [facility] [address] [facility] [address] [facility]. [facility]. [address] Additional Instructions: Call your primary care doctor TOMORROW for an appointment during the next 1-2 days.See the doctor sooner or return here if your condition worsens before your appointment time. CORRINE CRISOSTOMO MD Dec 05, 2016 12:34
== END 2016-12-05 13:01 | disposition home or self-care (01) ==
LOC: E/R 11:00
DX: F10.239 Alcohol dependence with withdrawal, unspecified (principal); F17.210 Nicotine dependence, cigarettes, uncomplicated
CPT/HCPCS: Z7502; Z7610; 99283